=== PATIENT | female | born 1950 | race Hispanic/Latino ===

== ENCOUNTER 2024-04-25 03:46 | Emergency (ER) | payer OTHER ==
[~2024-04-25] VITALS: Ht 154.9 cm; Wt 83.9 kg
[~2024-04-25 03:46] MED LIST: ADVAIR 100-501 EACH INH; AMLODIPINE BESYL5 MG PO; ASPIRIN81 MG PO; B-121000 MC1; CARVEDILOL3.125 MG PO; D3 PLUS K2 DOT1 EACH; HYDROCHLOROTHIA25 MG PO; KLONOPIN0.5 MG PO; LEVOCETIRIZINE D5 MG PO; LISINOPRIL10 MG PO; LOSARTAN-HCTZ1 EAC1 PO; METFORMIN HCL500 M2 PO; MUCINEX DM ER1 EACH PO; OMEPRAZOLE40 MG PO; OZEMPIC0.25 MG/02; PAXIL20 MG PO; PEPCID20 MG PO; ZETIA10 MG PO
[2024-04-25 03:55] VITALS: TEMP 98.2
[2024-04-25 04:09] LABS: BASOPHILS # (AUTO) 0.1 (0.0-0.1); BASOPHILS % 0.5 % (0.0-1.0); EOSINOPHILS # (AUTO) 0.2 (0.0-0.4); EOSINOPHILS % 1.7 % (0.0-6.0); HEMOGLOBIN 12.3 g/dL (12.0-16.0); LYMPHOCYTES # (AUTO) 4.3 (1.0-3.2); MEAN CORPUSCULAR HEMOGLOBIN 31.5 pg (28-32); MEAN CORPUSCULAR HGB CONC 33.2 g/dL (31-35); MEAN CORPUSCULAR VOLUME 94.9 fL (81-99); MONOCYTES # (AUTO) 0.7 (0.2-0.8); MONOCYTES % 6.2 % (4.4-11.3); NEUTROPHILS % 53.4 % (38.7-80.0); PLATELET COUNT 275 x10e3/uL (140-360); RED CELL DISTRIBUTION WIDTH 12.8 % (11.7-14.4); WHITE BLOOD COUNT 11.18 x10e3/uL (4.8-10.8)
[2024-04-25] MEDS: Morphine 4mg INJECTION 4 MG/ML INJ IV ONE (04:11)
[2024-04-25] MEDS: ONDANSETRON HCL INJ 2MG/ML 2ML 2 MG/ML VIAL IV STA (04:11)
[2024-04-25 04:29] LABS: ALBUMIN 3.7 g/dL (3.5-5.0); BILIRUBIN,TOTAL 0.9 mg/dL (0.2-1.2); CALCIUM 9.4 mg/dL (8.4-10.2); CREATININE, SERUM 0.78 mg/dL (0.57-1.11); TOTAL PROTEIN 7.4 g/dL (6.5-8.1)
[2024-04-25 04:35] LABS: TROPONIN I 0.008 ng/mL (0-0.300)
[2024-04-25 05:08] VITALS: PULSE 65; RESP 16
[2024-04-25] MEDS ORDERED: Morphine 4mg INJECTION 4 MG/ML INJ IV PRN (06:00)
[2024-04-25] MEDS ORDERED: ONDANSETRON HCL INJ 2MG/ML 2ML 2 MG/ML VIAL IV PRN (06:00)
[2024-04-25] MEDS ORDERED: DEXTROSE 50% SYRINGE 50 ML IV PRN (06:00)
[2024-04-25] MEDS ORDERED: FAMOTIDINE 20 MG TAB PO SCH (06:00)
[2024-04-25 06:07] VITALS: BP 139/64; PULSE 66; RESP 16; TEMP 97.9; O2SAT 97
[2024-04-25] MEDS ORDERED: INSULIN REGULAR, HUMAN 100 UNIT/1 ML SQ SCH (07:30)
[2024-04-25] MEDS ORDERED: ASPIRIN 325 MG TAB EC PO SCH (09:00)
== END 2024-04-25 06:08 | disposition home or self-care (01) ==
LOC: ER 03:52
DX: R51.9 Headache, unspecified (principal); R07.9 Chest pain, unspecified; E11.65 Type 2 diabetes mellitus with hyperglycemia; I10 Essential (primary) hypertension; K21.9 Gastro-esophageal reflux disease without esophagitis
CPT/HCPCS: 36415; 70450; 71045; 80053; 82550; 84484; 85025; 99284; J2270; J2405

== ENCOUNTER → 2024-06-17 | Outpatient (REF) | payer MEDICARE | LOC: MAMMO 09:22 | PROVIDERS: ATTEND Internal Medicine | DX: Z12.31 Encounter for screening mammogram for malignant neoplasm of breast (principal); M85.88 Other specified disorders of bone density and structure, other site | CPT/HCPCS: 77067; 77080 ==

== ENCOUNTER 2024-07-08 13:00 | Emergency (ER) | payer MEDICARE ==
[~2024-07-08] VITALS: Ht 154.9 cm; Wt 83.9 kg
[2024-07-08 13:35] VITALS: TEMP 97.7
[2024-07-08] MEDS: MECLIZINE HCL 12.5 MG TAB PO ONE (14:32)
[2024-07-08 16:23] VITALS: PULSE 84; RESP 16; O2SAT 99
[2024-07-09] MEDS ORDERED: BENZONATATE100 MG (10:36)
[2024-07-09] MEDS ORDERED: GLIPIZIDE2.5 MG (10:36)
[2024-07-10] MEDS ORDERED: ALPRAZOLAM0.25 MG PO (10:34)
[2024-07-10] MEDS ORDERED: ATORVASTATIN CA10 MG PO (10:34)
== END 2024-07-08 16:51 | disposition home or self-care (01) ==
LOC: ER 14:26
DX: R05.9 Cough, unspecified (principal); I10 Essential (primary) hypertension; R42 Dizziness and giddiness; E11.9 Type 2 diabetes mellitus without complications; K21.9 Gastro-esophageal reflux disease without esophagitis; F41.9 Anxiety disorder, unspecified; R20.2 Paresthesia of skin; R94.31 Abnormal electrocardiogram [ECG] [EKG]
CPT/HCPCS: 70450; 93005; 99283; J8597

== ENCOUNTER 2024-07-09 10:02 | Observation (INO) | payer MEDICARE ==
[~2024-07-09] VITALS: Ht 154.9 cm; Wt 87.1 kg
[2024-07-09] VITALS (7 sets, daily range): BP systolic 156–178; BP diastolic 74–89; PULSE 68–77; RESP 16–21; TEMP 97.8–98.4; O2SAT 97–99
[2024-07-09] MEDS ORDERED: GLIPIZIDE2.5 MG (10:36)
[2024-07-09] MEDS ORDERED: BENZONATATE100 MG (10:36)
[2024-07-09 10:53] LABS: BASOPHILS # (AUTO) 0.1 (0.0-0.1); BASOPHILS % 0.6 % (0.0-1.0); EOSINOPHILS # (AUTO) 0.1 (0.0-0.4); EOSINOPHILS % 0.7 % (0.0-6.0); HEMATOCRIT 38.1 % (34.2-44.1); HEMOGLOBIN 13.2 g/dL (12.0-16.0); LYMPHOCYTES # (AUTO) 2.8 (1.0-3.2); MEAN CORPUSCULAR HEMOGLOBIN 31.1 pg (28-32); MEAN CORPUSCULAR HGB CONC 34.6 g/dL (31-35); MEAN CORPUSCULAR VOLUME 89.9 fL (81-99); MONOCYTES # (AUTO) 0.4 (0.2-0.8); MONOCYTES % 4.9 % (4.4-11.3); NEUTROPHILS # (AUTO) 5.4 (2.1-6.9); NEUTROPHILS % 61.6 % (38.7-80.0); PLATELET COUNT 365 x10e3/uL (140-360); RED BLOOD COUNT 4.24 x10e6/uL (3.6-5.1); RED CELL DISTRIBUTION WIDTH 12.8 % (11.7-14.4); WHITE BLOOD COUNT 8.74 x10e3/uL (4.8-10.8)
[2024-07-09 11:52] LABS: INR 0.87; PROTHROMBIN TIME 12.4 seconds (11.9-14.5)
[2024-07-09 11:53] LABS: PARTIAL THROMBOPLASTIN TIME 25.5 seconds (23.8-35.5)
[2024-07-09] MEDS: SODIUM CHLORIDE 0.9% 1000ML 1,000 ML IV STA (12:06)
[2024-07-09 12:11] LABS: ALBUMIN 4.1 g/dL (3.5-5.0); ALBUMIN/GLOBULIN RATIO 1.1 (0.8-2.0); BILIRUBIN,TOTAL 1.6 mg/dL (0.2-1.2); CALCIUM 10.5 mg/dL (8.4-10.2); CREATININE, SERUM 0.82 mg/dL (0.57-1.11); MAGNESIUM 1.6 MG/DL (1.3-2.1); TOTAL PROTEIN 7.9 g/dL (6.5-8.1)
[2024-07-09 12:36] LABS: THYROID STIMULATING HORMONE 0.795 uIU/mL (0.350-4.940); TROPONIN I 0.001 ng/mL (0-0.300)
[2024-07-09] MEDS ORDERED: METOPROLOL TARTRATE INJ 1 MG/ML VIAL IV PRN (14:15)
[2024-07-09] MEDS ORDERED: DOCUSATE SODIUM 100 MG CAP PO PRN (14:15)
[2024-07-09] MEDS ORDERED: ALBUTEROL/IPRATROPIUM 3 ML NEB NEB PRN (14:15)
[2024-07-09] MEDS ORDERED: ONDANSETRON HCL INJ 2MG/ML 2ML 2 MG/ML VIAL IV PRN (14:15)
[2024-07-09] MEDS ORDERED: DEXTROSE 50% SYRINGE 50 ML IV PRN (14:15)
[2024-07-09] MEDS ORDERED: ALPRAZOLAM 0.5 MG TAB PO PRN (14:15)
[2024-07-09] MEDS ORDERED: ACETAMINOPHEN 325 MG TAB PO PRN (14:15)
[2024-07-09 14:42] LABS: CHOL/HDL RATIO 2.8 (3.0-3.6)
[2024-07-09] MEDS: ENOXAPARIN SOD INJ 40 MG/0.4 ML SYR SC SCH (17:00)
[2024-07-09] MEDS: CARVEDILOL 3.125 MG TAB PO SCH (17:00)
[2024-07-09] MEDS: INSULIN REGULAR, HUMAN 100 UNIT/1 ML SQ SCH (17:04)
[2024-07-09] MEDS: PAROXETINE HCL 20 MG TAB PO SCH (19:46)
[2024-07-09] MEDS: SIMETHICONE 80 MG CHEW PO PRN (19:46)
[2024-07-09] MEDS: ATORVASTATIN 10 MG TAB PO SCH (19:46)
[2024-07-09] MEDS: ALPRAZOLAM 0.25 MG TAB PO SCH (19:46)
[2024-07-09 20:04] LABS: TROPONIN I 0.006 ng/mL (0-0.300)
[2024-07-09] MEDS ORDERED: MELATONIN 3 MG TAB PO PRN (21:00)
[2024-07-10] VITALS: BP 134/65; PULSE 70; RESP 20; TEMP 98.2; O2SAT 99
[2024-07-10 01:20] LABS: CREATINE KINASE 51 IU/L (29-168)
[2024-07-10 01:37] LABS: TROPONIN I < 0.001 ng/mL (0-0.300)
[2024-07-10 04:45] VITALS: BP 147/67; PULSE 63; RESP 20; TEMP 98.4; O2SAT 98
[2024-07-10 06:35] LABS: BASOPHILS # (AUTO) 0.1 (0.0-0.1); BASOPHILS % 0.8 % (0.0-1.0); EOSINOPHILS # (AUTO) 0.1 (0.0-0.4); EOSINOPHILS % 1.5 % (0.0-6.0); HEMATOCRIT 35.7 % (34.2-44.1); HEMOGLOBIN 11.9 g/dL (12.0-16.0); LYMPHOCYTES # (AUTO) 3.1 (1.0-3.2); LYMPHOCYTES % 40.9 % (18.0-39.1); MEAN CORPUSCULAR HEMOGLOBIN 30.8 pg (28-32); MEAN CORPUSCULAR HGB CONC 33.3 g/dL (31-35); MEAN CORPUSCULAR VOLUME 92.5 fL (81-99); MONOCYTES # (AUTO) 0.6 (0.2-0.8); MONOCYTES % 8.2 % (4.4-11.3); NEUTROPHILS # (AUTO) 3.6 (2.1-6.9); NEUTROPHILS % 48.3 % (38.7-80.0); PLATELET COUNT 333 x10e3/uL (140-360); RED BLOOD COUNT 3.86 x10e6/uL (3.6-5.1); RED CELL DISTRIBUTION WIDTH 12.9 % (11.7-14.4); WHITE BLOOD COUNT 7.45 x10e3/uL (4.8-10.8)
[2024-07-10 07:18] LABS: ALBUMIN 3.5 g/dL (3.5-5.0); ANION GAP 12.2 mmol/L (8-16); BILIRUBIN,TOTAL 1.6 mg/dL (0.2-1.2); CALCIUM 9.3 mg/dL (8.4-10.2); CREATININE, SERUM 0.78 mg/dL (0.57-1.11); TOTAL PROTEIN 6.9 g/dL (6.5-8.1)
[2024-07-10 07:20] LABS: POTASSIUM 3.2 mmol/L (3.5-5.1)
[2024-07-10 07:43] LABS: CREATINE KINASE 51 IU/L (29-168)
[2024-07-10 08:01] LABS: TROPONIN I < 0.001 ng/mL (0-0.300)
[2024-07-10 08:17] VITALS: BP 141/68; PULSE 72; RESP 16; TEMP 97.7; O2SAT 98
[2024-07-10] MEDS: LEVOCETIRIZINE DIHYDROCHLORIDE PO SCH (09:00)
[2024-07-10] MEDS: EZETIMIBE 10 MG TAB PO SCH (09:03)
[2024-07-10] MEDS: PANTOPRAZOLE SOD 40 MG TABEC PO SCH (09:04)
[2024-07-10] MEDS: ASPIRIN 81 MG ENTERIC COATED PO SCH (09:05)
[2024-07-10] MEDS: AMLODIPINE BESYLATE 5 MG TAB PO SCH (09:05)
[2024-07-10] MEDS ORDERED: ALPRAZOLAM0.25 MG PO (10:34)
[2024-07-10] MEDS ORDERED: ATORVASTATIN CA10 MG PO (10:34)
[2024-07-10 11:33] VITALS: BP 129/64; PULSE 69; RESP 20; TEMP 97.9; O2SAT 98
== END 2024-07-10 15:07 | disposition home or self-care (01) ==
LOC: ER 10:50 → ERHOLD 12:53 → MED/SURG3 14:26
PROVIDERS: ADMIT Internal Medicine; ATTEND Internal Medicine
DX: R07.9 Chest pain, unspecified (principal); F41.9 Anxiety disorder, unspecified; I10 Essential (primary) hypertension; E78.5 Hyperlipidemia, unspecified; E66.9 Obesity, unspecified; Z68.35 Body mass index [BMI] 35.0-35.9, adult; E83.52 Hypercalcemia; E11.9 Type 2 diabetes mellitus without complications; Z79.4 Long term (current) use of insulin; K21.9 Gastro-esophageal reflux disease without esophagitis
CPT/HCPCS: 36415 ×2; 71045; 80053 ×2; 80061 ×2; 82550 ×2; 82948; 83036; 83735; 84443; 84484 ×2; 85025 ×2; 85379; 85610; 85730; 93005; 93306; 94799; 99284; G0378 ×2; J1650; S0164

== ENCOUNTER → 2024-10-01 | Outpatient (REF) | payer MEDICARE ==
[~2024-10-01] MED LIST changes: +ALPRAZOLAM0.25 MG PO; +ATORVASTATIN CA10 MG PO; +BENZONATATE100 MG; +GLIPIZIDE2.5 MG
== END ==
LOC: RAD 09:47
PROVIDERS: ATTEND Internal Medicine
DX: M25.561 Pain in right knee (principal)